=== PATIENT | male | born 1980 | race Two or more races ===

== ENCOUNTER 2016-10-03 16:17 | Emergency (ER) | payer OTHER ==
[~2016-10-03] VITALS: Ht 180.3 cm; Wt 118.3 kg
[2016-10-03] MEDS ORDERED: SODIUM CHLORIDE 0.9% 1,000ML IVBOLUS ONE (16:30)
[2016-10-03 17:09] LABS: BLOOD UREA NITROGEN 19 mg/dL (7-18)
[2016-10-03] MEDS ORDERED: OMNIPAQUE 350 MG/ML, 75ML BOTTLE ONE (18:00)
[2016-10-03 19:16] VITALS: BP 105/59
== END 2016-10-03 19:18 | disposition home or self-care (01) ==
LOC: ED 19:09
DX: K11.21 Acute sialoadenitis (principal)
CPT/HCPCS: 36415; 70487; 80048; 82040; 85025; 99285; Q9967

== ENCOUNTER 2018-05-05 10:06 | Emergency (ER) | payer OTHER ==
[2018-05-05] MEDS ORDERED: LORazepam 1MG TABLET ONE (11:53)
[2018-05-05] MEDS ORDERED: MAALOX/HYOSCYAMINE/LIDOCAINE 45 ML BTL ONE (11:53)
--- NOTE | 2018-05-05 13:33 | NUR ---
DR ADAMS AT BEDSIDE, POC DISCUSSED AND QUESTIONS ANSWERED.
[2018-05-05 13:47] LABS: MEAN CORPUSCULAR HEMOGLOBIN 30.5 pg (27.5-34.5)
[2018-05-05 13:48] LABS: BASOPHILS % (AUTO) 0 % (0-1); EOSINOPHILS % (AUTO) 2 % (1-7); LYMPHOCYTES % (AUTO) 24 % (22-44); MD NO; MEAN CORPUSCULAR HGB CONC 33.9 g/dL (33.2-36.2); MEAN PLATELET VOLUME 8.1 fL (7.4-10.4); MONOCYTES % (AUTO) 7 % (2-9); NEUTROPHILS % (AUTO) 67 % (42-75); PLATELET COUNT 285 x10^3/uL (130-400); RED CELL DISTRIBUTION WIDTH 13.7 % (9.4-14.8)
[2018-05-05 14:02] LABS: ANION GAP 7 mmol/L (5-15); CALCIUM 9.4 mg/dL (8.5-10.1); CHLORIDE 106 mmol/L (98-107); CREATININE 1.36 mg/dL (0.7-1.3); TROPONIN I < 0.015 ng/mL (0.000-0.045)
[2018-05-05 14:15] VITALS: BP 130/88
--- NOTE | 2018-05-05 14:16 | NUR ---
Patient/Caregiver given discharge instructions and they have confirmed that they understand the instructions. Patient ambulatory with steady gait.
== END 2018-05-05 14:17 | disposition home or self-care (01) ==
LOC: ED 13:11
DX: R07.89 Other chest pain (principal); I48.91 Unspecified atrial fibrillation
CPT/HCPCS: 36415; 71045; 80048; 83880; 84484; 85025; 93005; 99284